=== PATIENT | female | born 2000 | race Caucasian/White ===

== ENCOUNTER 2020-10-04 19:38 | Emergency (ER) | payer OTHER ==
[2020-10-04 20:11] LABS: Urine Blood NEGATIVE (NEG); Urine Glucose NEGATIVE (NEG); Urine Protein NEGATIVE (NEG); Urine Specific Gravity 1.025 (1.005-1.030); Urine pH 6.5 (5.0-7.0)
[2020-10-04 22:02] LABS: Basophils % 0.3 % (0-1.3); Hematocrit 29.9 % (36.0-45.0); Lymphocytes % 12.6 % (15.3-44.8); MPV 7.7 fL (7.6-11.3)
[2020-10-04] MEDS ORDERED: NA CHLORIDE 0.9% 1,000 ML ONE (22:04)
[2020-10-04 22:45] LABS: BUN Blood Urea Nitrogen 5 mg/dL (7-18); Bicarbonate 22 mmol/L (21-32); Glucose Level 77 mg/dL (74-106); HCG, Quantitative 87162 mIU/mL (1-3); Potassium 3.4 mmol/L (3.5-5.1); Sodium Level 140 mmol/L (136-145)
--- NOTE | 2020-10-04 22:46 | EDPHYS ---
Physician Documentation [facility] Name: Hamilton Fritz Age: 20 yrs Sex: Female : 2000 Arrival Date: 10/04/2020 Time: 19:44 Bed 26 Private MD: VLAD Physician Jere Meyers HPI: 10/04 21:33 This 20 yrs old Female presents to ER via Ambulatory with complaints of tayler Vomiting, Fainting. 21:33 The patient presents to the emergency department with nausea, vomiting, that is tayler intermittent. Onset: The symptoms/episode began/occurred 5 day(s) ago. Possible causes: unknown. The symptoms are aggravated by nothing. The symptoms are alleviated by nothing. Associated signs and symptoms: The patient has no apparent associated signs or symptoms. Severity of symptoms: At their worst the symptoms were mild in the emergency department the symptoms are unchanged. The patient has not experienced similar symptoms in the past. 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 - Social history:: Smoking status: Patient denies any tobacco usage or history of. Patient/guardian denies using alcohol, street drugs, IV drugs. - Family history:: not pertinent. ROS: 21:33 Constitutional: Negative for fever, chills, and weight loss, Eyes: Negative for injury, tayler pain, redness, and discharge, ENT: Negative for injury, pain, and discharge, Neck: Negative for injury, pain, and swelling, Cardiovascular: Negative for chest pain, palpitations, and edema, Respiratory: Negative for shortness of breath, cough, wheezing, and pleuritic chest pain, Back: Negative for injury and pain, : Negative for injury, bleeding, discharge, and swelling, MS/Extremity: Negative for injury and deformity, Skin: Negative for injury, rash, and discoloration, Neuro: Negative for headache, weakness, numbness, tingling, and seizure. 21:33 Abdomen/GI: Positive for nausea and vomiting. Exam: 21:33 Constitutional: This is a well developed, well nourished patient who is awake, alert, tayler and in no acute distress. Head/Face: Normocephalic, atraumatic. Eyes: Pupils equal round and reactive to light, extra-ocular motions intact. Lids and lashes normal. Conjunctiva and sclera are non-icteric and not injected. Cornea within normal limits. Periorbital areas with no swelling, redness, or edema. ENT: Nares patent. No nasal discharge, no septal abnormalities noted. Tympanic membranes are normal and external auditory canals are clear. Oropharynx with no redness, swelling, or masses, exudates, or evidence of obstruction, uvula midline. Mucous membranes moist. Neck: Trachea midline, no thyromegaly or masses palpated, and no cervical lymphadenopathy. Supple, full range of motion without nuchal rigidity, or vertebral point tenderness. No Meningismus. Chest/axilla: Normal chest wall appearance and motion. Nontender with no deformity. No lesions are appreciated. Cardiovascular: Regular rate and rhythm with a normal S1 and S2. No gallops, murmurs, or rubs. Normal PMI, no JVD. No pulse deficits. Respiratory: Lungs have equal breath sounds bilaterally, clear to auscultation and percussion. No rales, rhonchi or wheezes noted. No increased work of breathing, no retractions or nasal flaring. Abdomen/GI: Soft, non-tender, with normal bowel sounds. No distension or tympany. No guarding or rebound. No evidence of tenderness throughout. Back: No spinal tenderness. No costovertebral tenderness. Full range of motion. Skin: Warm, dry with normal turgor. Normal color with no rashes, no lesions, and no evidence of cellulitis. MS/ Extremity: Pulses equal, no cyanosis. Neurovascular intact. Full, normal range of motion. Neuro: Awake and alert, GCS 15, oriented to person, place, time, and situation. Cranial nerves II-XII grossly intact. Motor strength 5/5 in all extremities. Sensory grossly intact. Cerebellar exam normal. Normal gait. Psych: Awake, alert, with orientation to person, place and time. Behavior, mood, and affect are within normal limits. Vital Signs: 19:45 Pulse 100; Resp 18 S; Temp 97.2(TE); Pulse Ox 100% on R/A; Weight 58.97 kg (R); Height ca1 5 ft. 2 in. (157.48 cm) (R); Pain 0/10; 19:47 BP 127 / 76; Pulse 112; ca1 20:25 BP 118 / 68; Pulse 88; Resp 16; Pulse Ox 95% ; sf 20:30 BP 114 / 57; Pulse 89; Resp 16; Pulse Ox 95% ; sf 21:30 BP 112 / 74; Pulse 95; Resp 16; Pulse Ox 100% ; sf 22:30 BP 115 / 85; Pulse 93; Resp 16; Pulse Ox 100% ; sf 19:45 Body Mass Index 23.78 (58.97 kg, 157.48 cm) ca1 MDM: 19:48 Patient medically screened. [facility] 21:35 Differential diagnosis: viral gastroenteritis, gastroenteritis. Data reviewed: vital tayler signs, nurses notes, lab test result(s), CBC, electrolytes, hepatic panel, urinalysis, radiologic studies, ultrasound. 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 Test interpretation: by ED physician or midlevel provider:. Counseling: I had a detailed discussion with the patient and/or guardian regarding: the historical points, exam findings, and any diagnostic results supporting the discharge/admit diagnosis, lab results, radiology results, the need for outpatient follow up, for definitive care, an OB/Gyne specialist. 10/04 20:08 Order name: Urine --Ancillary (enter results); Complete Time: 21:32 tt3 10/04 20:08 Order name: Urine Dipstick--Ancillary (enter results); Complete Time: 21:32 tt3 10/04 21:33 Order name: Quantitative Hcg; Complete Time: 22:50 [facility] 10/04 21:33 Order name: Abo/rh Typing [facility] 10/04 21:33 Order name: Basic Metabolic Panel; Complete Time: 22:50 [facility] 10/04 21:33 Order name: CBC with Diff; Complete Time: 22:04 [facility] 10/04 20:06 Order name: Urine Dipstick-Ancillary (obtain specimen); Complete Time: 20:07 tt3 10/04 20:06 Order name: Urine Test (obtain specimen); Complete Time: 20:06 tt 10/04 21:33 Order name: IV Saline Lock; Complete Time: 21:45 [facility] 10/04 21:33 Order name: Labs collected and sent; Complete Time: 21:45 [facility] 10/04 21:33 Order name: NPO; Complete Time: 21:33 [facility] 10/04 21:33 Order name: US Transvaginal Ob [facility] 10/04 22:51 Order name: PO challenge: JUICE; Complete Time: 23:25 [facility] Administered Medications: 22:10 Drug: NS 0.9% 1000 ml Route: IV; Rate: 1 bolus; Site: right antecubital; sf 23:25 Follow up: IV Status: Completed infusion; IV Intake: 1000ml sf 22:56 Drug: Zofran (Ondansetron) 4 mg Route: PO; sf 23:25 Follow up: Response: No adverse reaction; Nausea is decreased sf Disposition: 10/04/20 22:45 Discharged to Home. Impression: related conditions, unspecified, first trimester, related conditions, unspecified, second trimester, Vomiting, Twin , Twin , dichorionic/diamniotic, first trimester, Twin , dichorionic/diamniotic, second trimester, Hypokalemia. - Condition is Stable. - Discharge Instructions: Nausea and Vomiting, Adult, First Trimester of , Lnqy-pe-Gjwf, First Trimester of , Pelvic Rest, Second Trimester of , Nato-wx-Slke. - Prescriptions for Diclegis 10- 10 mg Oral tablet,delayed release (DR/EC) - take 1 tablet by ORAL route 3 times per day and 2 tablets at bedtime; 60 tablet. Vitamin 27- 0.8 mg Oral Tablet - take 1 tablet by ORAL route once daily; 30 tablet. Zofran 4 mg Oral Tablet - take 1 tablet by ORAL route every 12 hours As needed; 20 tablet. - Medication Reconciliation Form, Thank You Letter, Antibiotic Education, Prescription Opioid Use form. - Follow up: Private Physician; When: 2 - 3 days; Reason: Recheck today's complaints, Continuance of care, Re-evaluation by your physician. Follow up: Camilo Gan MD; When: 2 - 3 days; Reason: Recheck today's complaints, Re-evaluation by your physician. - Problem is new. - Symptoms have improved. Signatures: Dispatcher [employer] Jere Trivedi MD MD cha Acob, Cheryl, RN RN ca1 Geovany Whiting3 Al Kasper RN RN sf Corrections: (The following items were deleted from the chart) 20:42 19:47 Home Meds: None; ca1 sf 22:19 21:33 Transvaginal Ob+US.BRIGITTE ordered. EDMS EDMS 23:18 22:45 10/04/2020 22:45 Discharged to Home. Impression: related conditions, tayler unspecified, first trimester; related conditions, unspecified, second trimester; Vomiting; Twin ; Twin , dichorionic/diamniotic, first trimester; Twin , dichorionic/diamniotic, second trimester. Condition is Stable. Discharge Instructions: Nausea and Vomiting, Adult, First Trimester of , Kzej-vp-Uyop, First Trimester of , Pelvic Rest, Second Trimester of , Tkyz-tq-Iwgn. Prescriptions for Diclegis 10-10 mg Oral tablet,delayed release (DR/EC) - take 1 tablet by ORAL route 3 times per day and 2 tablets at bedtime; 60 tablet, Vitamin 27-0.8 mg Oral Tablet - take 1 tablet by ORAL route once daily; 30 tablet, Zofran 4 mg Oral Tablet - take 1 tablet by ORAL route every 12 hours As needed; 20 tablet. and Forms are Medication Reconciliation Form, Thank You Letter, Antibiotic Education, Prescription Opioid Use. Follow up: Private Physician; When: 2 - 3 days; Reason: Recheck today's complaints, Continuance of care, Re-evaluation by your physician. Follow up: Camilo Gan; When: 2 - 3 days; Reason: Recheck today's complaints, Re-evaluation by your physician. Problem is new. Symptoms have improved. tayler 23:45 23:18 10/04/2020 22:45 Discharged to Home. Impression: related conditions, sf unspecified, first trimester; related conditions, unspecified, second trimester; Vomiting; Twin ; Twin , dichorionic/diamniotic, first trimester; Twin , dichorionic/diamniotic, second trimester; Hypokalemia. Condition is Stable. Discharge Instructions: Nausea and Vomiting, Adult, First Trimester of , Hvdg-sp-Iyon, First Trimester of , Pelvic Rest, Second Trimester of , Ouxb-ym-Zqaq. Prescriptions for Diclegis 10-10 mg Oral tablet,delayed release (DR/EC) - take 1 tablet by ORAL route 3 times per day and 2 tablets at bedtime; 60 tablet, Vitamin 27-0.8 mg Oral Tablet - take 1 tablet by ORAL route once daily; 30 tablet, Zofran 4 mg Oral Tablet - take 1 tablet by ORAL route every 12 hours As needed; 20 tablet. and Forms are Medication Reconciliation Form, Thank You Letter, Antibiotic Education, Prescription Opioid Use. Follow up: Private Physician; When: 2 - 3 days; Reason: Recheck today's complaints, Continuance of care, Re-evaluation by your physician. Follow up: Camilo Gan; When: 2 - 3 days; Reason: Recheck today's complaints, Re-evaluation by your physician. Problem is new. Symptoms have improved. tayler
--- NOTE | 2020-10-04 22:46 | ER ---
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 Coronavirus screen: ca1 Client denies travel out of the [place] in the last 14 days. vomiting. Client presents with at least one sign or symptom that may indicate coronavirus-19. Standard/surgical mask placed on the client. Provider contacted for isolation considerations. Ebola Screen: Patient negative for fever greater than or equal to 101.5 degrees Fahrenheit, and additional compatible Ebola Virus Disease symptoms Patient denies exposure to infectious person. Patient denies travel to an Ebola-affected area in the 21 days before illness onset. No symptoms or risks identified at this time. Initial Sepsis Screen: Does the patient meet any 2 criteria? No. Patient's initial sepsis screen is negative. Does the patient have a suspected source of infection? No. Patient's initial sepsis screen is negative. Risk Assessment: Do you want to hurt yourself or someone else? Patient reports no desire to harm self or others. Onset of symptoms was October 04, 2020. 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 - Social history:: Smoking status: Patient denies any tobacco usage or history of. Patient/guardian denies using alcohol, street drugs, IV drugs. - Family history:: not pertinent. Screenin:30 Abuse screen: Denies threats or abuse. Denies injuries from another. Nutritional sf screening: No deficits noted. Tuberculosis screening: No symptoms or risk factors identified. Never had TB. Possible symptoms: None Risk factors: None. Fall Risk None identified. No fall in past 12 months (0 pts). No secondary diagnosis (0 pts). IV access (20 points). Ambulatory Aid- None/Bed Rest/Nurse Assist (0 pts). Gait- Normal/Bed Rest/Wheelchair (0 pts) Mental Status- Oriented to own ability (0 pts). Total Dowling Fall Scale indicates No Risk (0-24 pts). Assessment: 20:35 General: Appears in no apparent distress. comfortable, Behavior is calm, cooperative, sf appropriate for age. Pain: Complains of pain in left low back, right low back, suprapubic area and groin. Neuro: Level of Consciousness is awake, alert, Oriented to person, place, time, situation, Reports a syncopal episode Denies weakness blurred vision numbness headache. Cardiovascular: No deficits noted. Capillary refill < 3 seconds Patient's skin is warm and dry. Respiratory: No deficits noted. Airway is patent Respiratory effort is even, unlabored, Respiratory pattern is regular, symmetrical. GI: Abdomen is gravid Abdomen is tender to palpation in suprapubic area Mass noted in suprapubic area Reports nausea, normal bowel habits, vomiting, Patient currently denies constipation, diarrhea. : Urine is cloudy, Denies burning with urination, urinary frequency, urgency. 21:30 Reassessment: Patient appears in no apparent distress at this time. No changes from sf previously documented assessment. Patient and/or family updated on plan of care and expected duration. Pain level reassessed. Patient is alert, oriented x 3, equal unlabored respirations, skin warm/dry/pink. 22:32 Reassessment: Patient appears in no apparent distress at this time. No changes from sf previously documented assessment. Patient and/or family updated on plan of care and expected duration. Pain level reassessed. Patient is alert, oriented x 3, equal unlabored respirations, skin warm/dry/pink. 23:38 Reassessment: Patient appears in no apparent distress at this time. Patient and/or sf family updated on plan of care and expected duration. Pain level reassessed. Patient is alert, oriented x 3, equal unlabored respirations, skin warm/dry/pink. decreased nausea, able to keep PO fluids down, ready for discharge Patient states feeling better. Patient states symptoms have improved. Vital Signs: 19:45 Pulse 100; Resp 18 S; Temp 97.2(TE); Pulse Ox 100% on R/A; Weight 58.97 kg (R); Height ca1 5 ft. 2 in. (157.48 cm) (R); Pain 0/10; 19:47 BP 127 / 76; Pulse 112; ca1 20:25 BP 118 / 68; Pulse 88; Resp 16; Pulse Ox 95% ; sf 20:30 BP 114 / 57; Pulse 89; Resp 16; Pulse Ox 95% ; sf 21:30 BP 112 / 74; Pulse 95; Resp 16; Pulse Ox 100% ; sf 22:30 BP 115 / 85; Pulse 93; Resp 16; Pulse Ox 100% ; sf 19:45 Body Mass Index 23.78 (58.97 kg, 157.48 cm) ca1 ED Course: 19:30 Patient has correct armband on for positive identification. Placed in gown. Bed in low sf position. Call light in reach. Side rails up X 1. Door closed. Noise minimized. Warm blanket given. Verbal reassurance given. 19:30 Urine collected: clean catch specimen, cloudy. sf 19:44 Patient arrived in ED. am4 19:46 Triage completed. ca1 19:47 Arm band placed on right wrist. ca1 19:48 Jere Meyers MD is Attending Physician. tayler 19:52 Al Kasper RN is Primary Nurse. sf 21:45 Initial lab(s) drawn, by il, sent to lab. Inserted saline lock: 20 gauge in right sf antecubital area, using aseptic technique. Blood collected. 22:45 Camilo Gan MD is Referral Physician. tayler 22:53 No provider procedures requiring assistance completed. sf 23:43 IV discontinued, intact, bleeding controlled, No redness/swelling at site. Pressure sf dressing applied. 23:48 US Transvaginal Ob In Process Unspecified. EDMS Administered Medications: 22:10 Drug: NS 0.9% 1000 ml Route: IV; Rate: 1 bolus; Site: right antecubital; sf 23:25 Follow up: IV Status: Completed infusion; IV Intake: 1000ml sf 22:56 Drug: Zofran (Ondansetron) 4 mg Route: PO; sf 23:25 Follow up: Response: No adverse reaction; Nausea is decreased sf Intake: 23:25 IV: 1000ml; Total: 1000ml. sf Outcome: 22:45 Discharge ordered by . tayler 23:43 Discharged to home ambulatory. sf 23:43 Condition: stable 23:43 Discharge instructions given to patient, Instructed on discharge instructions, follow up and referral plans. medication usage, safe sex practices, Demonstrated understanding of instructions, follow-up care, medications, Prescriptions given X 3. 23:45 Patient left the ED. sf Signatures: Dispatcher [employer] EDMS Jere Meyers MD MD cha Acob, Cheryl RN RN ca1 Maris Jolly Steven, RN RN sf Corrections: (The following items were deleted from the chart) 20:42 19:47 Home Meds: None; ca1 22:19 22:18 To radiology for Transvaginal Ob+US.RAD.JUAN MANUEL. sf EDSC
[2020-10-04] MEDS ORDERED: ONDANSETRON 4 MG (ODT) TAB ONE (23:12)
[2020-10-05 03:35] VITALS: BP 115/85; O2SAT 100
--- NOTE | 2020-10-06 10:33 | RAD REPORT ---
EXAM DESCRIPTION: US - Transvaginal OB - 10/04/2020 10:06 pm CLINICAL HISTORY: with abdominal pain. COMPARISON: None FINDINGS: Twin live intrauterine is seen. Twin A is in transverse presentation. Placenta is anterior. Amniotic fluid is normal. Cardiac activit y is 148 beats per minute. Twin B is in variable presentation. Cardiac activity is 149 beats per minute. Placenta is posterior. A septation separates the sacs of twin A and twin B. Femur length twin A is 1.7 centimeters 15 weeks 0 days. Femur length twin B is 1.69 centimeters 14 weeks 6 days. The right ovary is normal in size and echotexture. The left ovary was not seen secondary to overlying bowel gas. The right and left adnexal are unremarkable. IMPRESSION: 1. Viable twin . 2. Estimated gestational age of twin A is 15 weeks 0 days DANDY 03/28/2021. 3. Estimated gestational age of twin B is 14 weeks 6 days DANDY 03/29/2021. 4. The is appears to be diamniotic dichorionic. 5. A limited examination was performed STAT from the Emergency Room. 6. It is recommended that the patient have a complete OB ultrasound in approximately 3 weeks for re-e valuation and to also complete a survey.
== END 2020-10-04 23:45 | disposition home or self-care (01) ==
LOC: ER 19:38
DX: O99.282 Endocrine, nutritional and metabolic diseases complicating pregnancy, second trimester (principal); E87.6 Hypokalemia; O30.042 Twin pregnancy, dichorionic/diamniotic, second trimester; Z3A.15 15 weeks gestation of pregnancy
CPT/HCPCS: 36415; 76817; 80048; 81003; 81025; 84702; 85025; 86900; 86901; 96360; 99284; J7030

== ENCOUNTER 2020-12-13 13:15 | Inpatient (IN) | payer OTHER ==
[2020-12-13] MEDS ORDERED: BETAMET ACET/BETAMET NA PH 6 MG/ML VIAL IM SCH (14:00)
--- NOTE | 2020-12-13 14:03 | RAD REPORT ---
EXAM DESCRIPTION: US - OB Limited - 12/13/2020 1:47 pm CLINICAL HISTORY: imminent delivery, twin gestation COMPARISON: Transvaginal OB dated 10/04/2020 FINDINGS: Twin A heart rate 148 BPM. Twin B heart rate 146 BPM. Twin gestation identify it with both twins in a breech presentation. Cervix is dilated and membranes appear to be extending into the cervical canal. Femur measurements were obtained and correspond to 25 week 2 day age for twin a day and 25 week 4 day age for twin B IMPRESSION: Twin gestation 25 week age, both in breech presentation. Dilated cervix with membranes bulging into the cervix.
[2020-12-13] MEDS ORDERED: EPINEPHrine 1 MG/10 ML SYR ONE (14:04)
[2020-12-13] MEDS ORDERED: TERBUTALINE SULF 1 MG/1ML ONE (14:04)
[2020-12-13] MEDS ORDERED: CARBOPROST TROME 250 MCG/ML IM ONE (14:08)
[2020-12-13] MEDS ORDERED: METHYLERGONOVINE 0.2MG/ML AMP IM ONE (14:08)
[2020-12-13] MEDS ORDERED: BUPIVACAINE 0.75% (PF) 2 ML SP ONE (14:14)
[2020-12-13] MEDS ORDERED: OXYTOCIN 10 UNIT/ML ML IV ONE (14:15)
[2020-12-13] MEDS ORDERED: MORPHINE SULFATE/PF 1 MG/ML (10 ML AMP) ONE (14:15)
[2020-12-13] MEDS ORDERED: EPHEDRINE SULF 50 MG/ML VIAL ONE (14:15)
[2020-12-13] MEDS ORDERED: LIDOCAINE 1% MPF 5 ML VIAL ONE (14:19)
[2020-12-13] MEDS ORDERED: OXYTOCIN/LR 20 UNIT/1,000 ML BAG IV SCH (15:00)
[2020-12-13] MEDS ORDERED: OXYTOCIN/LR 20 UNIT/1,000 ML BAG IV ONE (15:57)
[2020-12-13] MEDS ORDERED: CEFAZOLIN/SWI 1gm 1 GM/10 ML SYR IVP ONE ×2 (16:00→21:00)
[2020-12-13 16:04] LABS: Absolute Lymphocytes (CBC) 1.2 K/uL (0.7-4.9); Basophils % 0.4 % (0-1.3); Hematocrit 29.2 % (36.0-45.0); Lymphocytes % 15.3 % (15.3-44.8); MPV 8.9 fL (7.6-11.3); RBC Red Blood Cell Count 3.12 M/uL (3.86-4.86)
[2020-12-13] MEDS ORDERED: ACETAMINOPHEN 500 MG TAB PO PRN (17:44)
[2020-12-13] MEDS ORDERED: Oxycodone HCl/Acetaminophen 1 TAB TAB PO PRN (17:58)
[2020-12-13] MEDS ORDERED: D5LR 1,000 ML IV SCH (18:00)
[2020-12-13] MEDS ORDERED: Ringers Lactate 1,000 ML IV SCH (18:00)
[2020-12-13] MEDS ORDERED: IBUPROFEN 600 MG TAB ONE (18:12)
--- NOTE | 2020-12-13 18:47 | PN ---
Transfer Team is on the way, but I do not think we will have time to wait for them. She is contracti ng every 2 minutes very firmly, is requesting . Infection; blood loss; anesthetic complicati ons; injury to bladder, bowel, ureter; postoperative complications; clots in legs, and pneumonia disc ussed. Surgical crew has been alerted. Dr. Watts is here and has already talked to the patient. Dr. Zavaleta is on his way to help me with the surgery. Dr. Garcia has been alerted and is on her w ay. We will go back and deliver as soon as we can. She knows the baby will be transferred as soon a s her stable enough to be transferred. The Transfer Team should be here hopefully. By the time, we have delivery and the baby is in the Nursery. THEA/CLEMENTINE Voice ID: [id number] Report ID: [id number]
[2020-12-13] MEDS ORDERED: KETOROLAC 30 MG/ML INJ IM ONE (19:00)
--- NOTE | 2020-12-13 19:02 | PREOPHP ---
Date of Admission: 12/13/2020 History Of Present Illness: Hamilton Fritz is a 20-year-old primigravida at 24 weeks and 3 days. Reported contractions since 10 a.m. this morning. Comes into Labor and Delivery, noted to have bul ging membranes at the introitus. Presenting part is unknown, and amount of dilation is really undete ctable at this point since any attempt to get pass the membranes will probably result in membrane rup ture. She has been started on penicillin. First dose of Celestone has been given. We are starting IV and hydrating. I have talked to INPATIENT AUDITOR specialist at the [facility], who has accepted transfer of either the patient if it can be ascertained she can be transferred safely or delivery of the adriana es here and then transfer the babies. They are sending the team out as I dictate. The patient is st able. Family History: Noncontributory. Physical Examination: Vital Signs: All stable. HEENT: Clear. Pupils equal, round, reactive to light and accommodation. Conjunctivae well perfused . No oral, lingual, or buccal lesions. Chest and Lungs: Clear. Heart: Without murmurs. Breasts: Not examined. Abdomen: Appropriate for 24 weeks with a twin gestation. Extremities: Clear without edema, cyanosis, or clubbing. Pelvic: As stated with bulging membranes at the introitus. Ultrasound is being performed at this po int to determine the position of presenting baby and to try to see if we can determine what the cervi x is dilated to at this point. Diagnoses: Intrauterine gestation, 24 weeks 3 days, premature labor, delivery relatively soon, trans eliazar process has been initiated. THEA/CLEMENTINE Voice ID: [id number]
[2020-12-13] MEDS: ONDANSETRON 4 MG/2 ML VIAL IV PRN (20:30)
[2020-12-13] MEDS ORDERED: CEFAZOLIN/NS 1gm 1 GM/50 ML BAG IVPB ONE (21:00)
[2020-12-13 21:15] VITALS: BMI 28.0
[2020-12-14] MEDS ORDERED: IBUPROFEN 600 MG TAB PO SCH
[2020-12-14] MEDS ORDERED: OXYTOCIN/LR 20 UNIT/1,000 ML BAG IV ONE (00:05)
[2020-12-14] MEDS: ONDANSETRON 4 MG/2 ML VIAL IV PRN (00:35)
--- NOTE | 2020-12-14 01:02 | OP ---
Surgeon: Camilo Gan MD Hamilton Fritz is a 20-year-old female, twins, 24 weeks 3 days, premature labor, first twin breech wi th the feet at the introitus. It was decided to proceed with section after discussion of op tions, infection, blood loss, anesthetic complications; injury to bladder, bowel, ureter; postoperati ve complications; clots in legs; and pneumonia. The patient knows this does not constitute all the p ossible problems that could occur during or following surgery. She had received 5 million units of p enicillin preop as well as Celestone and 1 dose of terbutaline to slow down contractions. Dr. Danyell telles, assistance surgeon; Dr. Watts for anesthesia. Dr. Watts performed spinal block anesthesia. T he patient was prepped and draped. A Pfannenstiel incision was created. Incision was carried to the fascia. The fascia was incised. The incision carried transversely bilaterally with Rg scissors. Anterior and posterior fascial planes were developed with both blunt and sharp dissection. Underlyi ng peritoneum entered and retraction applied. Low transverse bladder flap developed. Low transverse uterine incision created. A very small female was delivered through the incision without difficulti es, handed over to Pediatrics. Cords clamped. Second baby was delivered vertex, slightly larger carol n the first and more responsive. Placenta was removed manually. The uterus cleared of clot and bloo d and exteriorized. Mild hypotonus, 0.2 mg of Methergine IM as well as IV drip, Pitocin, and massage . Estimated blood loss during the procedure 800-900 cc. Uterus closed with a running lock stitch of 1 chromic followed by imbricating stitch of 1 chromic. Gutters clear of clot and blood. Uterus rep laced into the peritoneal cavity. No further bleeding was seen. Muscles were reapproximated using 0 Vicryl interrupted sutures, 2 sutures. The fascia was closed using 1 Vicryl running from either ang le to the midline. Subcutaneous tissue was closed with 2-0 plain. [place] used for the skin. The p atient tolerated all procedures well and transferred back to her room in good condition. Final Diagnoses: Intrauterine gestation, twins, 24 weeks 3 days, premature labor, advanced. First b [place] footling breech. Primary section. Spinal block anesthesia. Celestone administered. NBC/MODL Voice ID: [id number] Report ID: [id number]
[2020-12-14 01:14] LABS: RPR (Rapid Plasma Reagin) NON-REACT (NON-REACT)
[2020-12-14 05:14] LABS: Hematocrit 31.1 % (36.0-45.0)
[2020-12-14] MEDS: Oxycodone HCl/Acetaminophen 1 TAB TAB PO PRN ×2 (10:09→17:31)
--- NOTE | 2020-12-14 10:58 | PN ---
Hospital Course: Hamilton Fritz postoperatively has done quite well. H and H actually showed increa se. Vital signs are all stable. Output is good. We will discontinue her Haile sometime later this morning and then IV as she begins to ambulate if she shows no problems. She is Rh positive, HIV and hepatitis negative. She has no post spinal block problems. Full postoperative talk given. Anticipa te dismissal sometime tomorrow. THEA/CLEMENTINE Voice ID: [id number] Report ID: [id number]
[2020-12-15] MEDS: Oxycodone HCl/Acetaminophen 1 TAB TAB PO PRN ×2 (02:39→10:33)
[2020-12-15 06:22] VITALS: TEMP 97.7
[2020-12-15 11:50] VITALS: BP 117/57
--- NOTE | 2020-12-15 13:53 | DS ---
Hospital Course: Hamilton Fritz is a 20-year-old, primigravida, 24 weeks 3 days, known twin gestation, came in with advanced cervical dilation, bulging membranes, first baby foot in breech, and feet noted at the basically introitus. IV was started. She was given 5 million units of penicillin, 0.25 subcu terbutaline to try to slow down the contractions, Celestone. Contact was made with [facility] Transfer Team was ordered to be sent. In the meantime, though the patient went into an even more active labor again to feel the urge to push and at that point requested section. She was taken to surgery. Spinal block anesthesia was performed. She was delivered of 2 female infants, both weighing 1 pound 7 ounces, first one from footling breech, second one had first. Mild uterine hypertonus. 900 mL of blood loss, 0.2 mg of Methergine IM as well as IV drip Pitocin and massage. Low transverse uterine incision. Postoperatively, she has done well. She has remained afebrile, ambulating, voiding. Lochia is normal. She will be dismissed this morning to report back to my office next week for followup to report any temperature elevation of 100 degrees or greater, severe pain, heavy bleeding, or any other type of abnormalities. Encouraged to get her Tdap immunization. Her H and H actually increased after surgery. She has had trouble with anemia during the and her blood count now is basically what was in beginning of the . Twins are in [place] and at this point are doing about as well as expected at 24 weeks. Final Diagnoses: Intrauterine gestation, twins, 24 weeks 3 days, premature labor, footling breech first baby, primary section, spinal block anesthesia, mild uterine hypotonus. NBC/MODL Voice ID: [id number] Report ID: [id number] SHAY
[2020-12-16 19:35] LABS: HBsAG Nonreactive (Nonreactive)
== END 2020-12-15 17:10 | disposition home or self-care (01) | DRG 787 ==
LOC: L&D 13:15 → 2ND-WC 13:46
PROVIDERS: ADMIT Specialist; ATTEND Specialist
PROC: 10D00Z1 Extraction of Products of Conception, Low, Open Approach (ICD-10-PCS; principal; 2020-12-13 14:16)
DX: O60.12X1 Preterm labor second trimester with preterm delivery second trimester, fetus 1 (principal); O31.8X21 Other complications specific to multiple gestation, second trimester, fetus 1; O30.042 Twin pregnancy, dichorionic/diamniotic, second trimester; O32.1XX1 Maternal care for breech presentation, fetus 1; O62.4 Hypertonic, incoordinate, and prolonged uterine contractions; Z3A.24 24 weeks gestation of pregnancy; Z37.2 Twins, both liveborn
CPT/HCPCS: 36415; 76815; 85014; 85018; 85025; 86592; 86901; 87340; 88305; 88307; G0433; J0171; J0690; J0702; J2210; J2405; J2590; J3105; J7120

== ENCOUNTER 2023-12-01 14:16 | Emergency (ER) | payer SELFPAY ==
[2023-12-01] MEDS ORDERED: NA CHLORIDE 0.9% 1,000 ML ONE (14:37)
[2023-12-01 15:01] LABS: Absolute Eosinophils 0.2 K/uL (0-0.5); Absolute Lymphocytes (CBC) 1.5 K/uL (0.7-4.9); Absolute Monocytes 0.5 K/uL (0.1-1.3); Absolute Neutrophil 4.6 K/uL (1.8-8.0); Basophils % 0.6 % (0-1.3); Eosinophils % 2.6 % (0-4.4); Hematocrit 37.3 % (36.0-45.0); Hemoglobin 12.3 g/dL (12.0-15.0); Lymphocytes % 22.3 % (15.3-44.8); MCH 29.3 pg (27.0-35.0); MCHC 32.9 g/dL (32.0-36.0); Monocytes % 7.5 % (3.3-12.3); Nucleated Red Blood Cells % 0.1 % (0-0); Platelets 378 thou/uL (152-406); RBC Red Blood Cell Count 4.18 M/uL (3.86-4.86); Red Cell Distribution Width 13.7 % (12.1-15.2)
[2023-12-01 15:17] LABS: SARS-CoV-2 Antigen CONTROL BLUE LINE VIS/BG OK; SARS-CoV-2 Antigen Rapid Res Negative (Negative)
[2023-12-01 15:30] LABS: Albumin 3.7 g/dL (3.4-5.0); Albumin/Globulin Ratio 0.9 (1.1-1.8); Anion Gap 7.9 mEq/L (5.0-15.0); Bilirubin Total 0.1 mg/dL (0.2-1.0); Globulin 3.9 g/dL (2.3-3.5); Potassium 3.9 mEq/L (3.5-5.1); Protein, Total 7.6 g/dL (6.4-8.2); Thyroid Stimulating Hormone 2.52 uIU/mL (0.358-3.740)
[2023-12-01 15:37] LABS: Monoscreen NEG (NEG)
--- NOTE | 2023-12-01 15:53 | EDPHYS ---
Physician Documentation [facility] Name: Hamilton Fritz Age: 23 yrs Sex: Female : 2000 Arrival Date: 12/01/2023 Time: 14:16 Bed 15 Private MD: ED Physician Andrew Zurita HPI: 11/30 14:33 This 23 yrs old Female presents to ER via Ambulatory with complaints of Lips Swelling, sb4 Fever. 14:33 patient presents with multiple complaints today- states that her upper lip has been sb4 swollen since last night, has had a sore throat and right ear pain for several months, and feels chronically fatigued. she denies eating any new foods or starting new medications recently. only daily medication is Adderall. denies any itching, shortness of breath, rash. 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 - Infectious Disease History:: Denies. - Social history:: Smoking status: Patient denies any tobacco usage or history of. ROS: 14:33 Constitutional: Negative for fever, chills, and weight loss, sb4 14:33 ENT: Positive for ear pain, sore throat, lip swelling, 14:33 All other systems are negative, Exam: 14:33 Constitutional: This is a well developed, well nourished patient who is awake, alert, sb4 and in no acute distress. Head/Face: Normocephalic, atraumatic. Eyes: Extra-ocular motions intact. Periorbital areas with no swelling, redness, or edema. Respiratory: Lungs have equal breath sounds bilaterally, clear to auscultation and percussion. No rales, rhonchi or wheezes noted. No increased work of breathing, no retractions or nasal flaring. Abdomen/GI: Soft, non-tender, no distension. Skin: Warm, dry with normal turgor. Normal color with no rashes, no lesions, and no evidence of cellulitis. MS/ Extremity: Pulses equal, no cyanosis. Neurovascular intact. Full, normal range of motion. Neuro: Awake and alert, GCS 15, oriented to person, place, time, and situation. Motor strength 5/5 in all extremities. Sensory grossly intact. 14:33 ENT: Ear canal(s): are normal, no acute changes, TM's: are normal, no acute changes, Mouth: Lips: upper lip swollen, Posterior pharynx: Airway: normal, no evidence of obstruction, patent, Vital Signs: 14:25 BP 133 / 84; Pulse 119; Resp 17; Temp 99.1(O); Pulse Ox 100% on R/A; Weight 60.33 kg; nj1 Height 5 ft. 2 in. ; Pain 6/10; 14:34 BP 125 / 95; Pulse 113; Resp 18; Pulse Ox 100% on R/A; tl4 15:00 BP 124 / 69; Pulse 95; Resp 16; Pulse Ox 99% on R/A; tl4 16:09 BP 118 / 71; Pulse 86; Resp 16; Temp 98.2(O); Pulse Ox 100% on R/A; Pain 0/10; tl4 14:25 Body Mass Index 24.33 (60.33 kg, 157.48 cm) nj1 14:25 Pain Scale: Adult nj1 16:09 Pain Scale: Adult tl4 MDM: 14:21 Patient medically screened. sb4 15:52 Data reviewed: vital signs, nurses notes, lab test result(s), and as a result, I will sb4 discharge patient. Counseling: I had a detailed discussion with the patient and/or guardian regarding the historical points, exam findings, and any diagnostic results supporting the discharge/admit diagnosis, lab results, the need for outpatient follow up, for definitive care, to return to the emergency department if symptoms worsen or persist or if there are any questions or concerns that arise at home. 11/30 14:31 Order name: CBC with Diff; Complete Time: 15:12 sb4 11/30 14:31 Order name: CMP; Complete Time: 15:30 sb4 11/30 14:31 Order name: Strep sb4 11/30 14:31 Order name: [place] Screen Profile; Complete Time: 15:38 sb4 11/30 14:31 Order name: TSH; Complete Time: 15:30 sb4 11/30 14:31 Order name: SARS RAPID; Complete Time: 15:18 sb4 11/30 15:24 Order name: Throat Culture EDMS 11/30 14:31 Order name: IV Start; Complete Time: 14:55 sb4 Administered Medications: 14:55 Drug: NS 0.9% IV 1000 ml IV at 1 bolus Per protocol; 1000 mL bolus {Note: via alaris tl4 pump.} Route: IV; Rate: 1 bolus; Site: right antecubital; Delivery: Primary tubing; 16:06 Follow up: Response: No adverse reaction; IV Status: Completed infusion; IV Intake: tl4 1000ml Disposition: 16:18 Co-signature as Attending Physician, Anrdew Zurita MD I reviewed the patient's care rn provided by the Advanced Practice Provider and agree with the diagnosis and treatment plan. Disposition Summary: 12/01/23 15:53 Discharge Ordered Notes: Location: Home sb4 Problem: new sb4 Symptoms: are unchanged sb4 Condition: Stable sb4 Diagnosis - upper lip swelling sb4 Followup: sb4 - With: Simone Contreras, DO - When: As needed - Reason: Recheck today's complaints, Re-evaluation by your physician Discharge Instructions: - Discharge Summary Sheet sb4 - Dizziness, [id number] sb4 Forms: - Patient Portal Instructions sb4 - Leadership Thank You Letter sb4 Prescriptions: - Prednisone 20 mg Oral Tablet - take 2 tablets ORAL route once daily for 5 days; 10 tablet; Refills: 0, Product sb4 Selection Permitted Signatures: Dispatcher [employer] Andrew Lorenz MD MD rn Baxter, Heather, RN RN hb Brown, Sophia, PA-C PAWaldo sb4 Ashley Villar RN RN nj1 Chris Apple RN RN tl4 Corrections: (The following items were deleted from the chart) 14:32 14:31 CBC+H.LAB.BRZ ordered. EDMS EDMS 14:32 14:31 COMPREHENSIVE METABOLIC PANEL+C.LAB.BRZ ordered. EDMS EDMS 14:32 14:31 Group A Streptococcus Rapid Sc+BA.LAB.BRZ ordered. EDMS EDMS 14:32 14:31 MONO SCREEN PROFILE+I.LAB.BRZ ordered. EDMS EDMS 14:32 14:31 THYROID STIMULAT HORMONE+C.LAB.BRZ ordered. EDMS EDMS 14:32 14:32 SARS-COV-2 Antigen Rapid+I.LAB.BRZ ordered. EDMS EDMS 14:32 14:32 Influenza Screen (A \T\ B)+BA.LAB.BRZ ordered. EDMS EDMS 15:50 15:44 Labs - recollect needed ordered. hb sb4
--- NOTE | 2023-12-01 15:53 | ER ---
Nurse's Notes [facility] Name: Hamilton Fritz Age: 23 yrs Sex: Female : 2000 Arrival Date: 12/01/2023 Time: 14:16 Bed 15 Private MD: Diagnosis: upper lip swelling Presentation: 11/30 14:25 Chief complaint: Patient states: Lips swelling since yesterday. Dizziness, sore throat nj1 and right ear pain for a while. 14:25 Coronavirus screen: Vaccine status: Patient reports being unvaccinated. Ebola Screen: nj1 Patient denies travel to an Ebola-affected area in the 21 days before illness onset. Initial Sepsis Screen: Does the patient meet any 2 criteria? HR > 90 bpm. No. Patient's initial sepsis screen is negative. Does the patient have a suspected source of infection? No. Patient's initial sepsis screen is negative. Risk Assessment: Do you want to hurt yourself or someone else? Patient reports no desire to harm self or others. Onset of symptoms was November 30, 2023. 14:25 Method Of Arrival: Ambulatory 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 - Infectious Disease History:: Denies. - Social history:: Smoking status: Patient denies any tobacco usage or history of. Screenin:34 [facility] ED Fall Risk Assessment (Adult) History of falling in the last 3 months, tl4 including since admission No falls in past 3 months (0 pts) Confusion or Disorientation No (0 pts) Intoxicated or Sedated No (0 pts) Impaired Gait No (0 pts) Mobility Assist Device Used No (0 pt) Altered Elimination No (0 pt) Score/Fall Risk Level 0 - 2 = Low Risk Oriented to surroundings, Maintained a safe environment, Educated pt \T\ family on fall prevention, incl call for assistance when getting out of bed, Assessed \T\ reinforced patient's understanding of fall precautions. Abuse screen: Denies threats or abuse. Denies injuries from another. Nutritional screening: No deficits noted. Tuberculosis screening: No symptoms or risk factors identified. Assessment: 14:32 General: Appears in no apparent distress. Behavior is calm, cooperative. Pain: Denies tl4 pain. Neuro: Level of Consciousness is awake, alert, obeys commands, Oriented to person, place, time, situation, Moves all extremities. Full function Gait is steady, Speech is normal. Cardiovascular: Denies chest pain, palpitations, shortness of breath, syncope, Capillary refill < 3 seconds Patient's skin is warm and dry. Respiratory: Airway is patent Respiratory effort is even, unlabored, Respiratory pattern is regular, symmetrical, Breath sounds are clear bilaterally. GI: No signs and/or symptoms were reported involving the gastrointestinal system. : No signs and/or symptoms were reported regarding the genitourinary system. EENT: upper lip swelling. Derm: No deficits noted. Musculoskeletal: No deficits noted. 15:24 Reassessment: Patient and/or family updated on plan of care and expected duration. Pain tl4 level reassessed. Patient is alert, oriented x 3, equal unlabored respirations, skin warm/dry/pink. Pt denies any needs at this time Patient states feeling better. 16:10 Reassessment: Patient and/or family updated on plan of care and expected duration. Pain tl4 level reassessed. Patient is alert, oriented x 3, equal unlabored respirations, skin warm/dry/pink. Patient states feeling better. Vital Signs: 14:25 BP 133 / 84; Pulse 119; Resp 17; Temp 99.1(O); Pulse Ox 100% on R/A; Weight 60.33 kg; nj1 Height 5 ft. 2 in. ; Pain 6/10; 14:34 BP 125 / 95; Pulse 113; Resp 18; Pulse Ox 100% on R/A; tl4 15:00 BP 124 / 69; Pulse 95; Resp 16; Pulse Ox 99% on R/A; tl4 16:09 BP 118 / 71; Pulse 86; Resp 16; Temp 98.2(O); Pulse Ox 100% on R/A; Pain 0/10; tl4 14:25 Body Mass Index 24.33 (60.33 kg, 157.48 cm) [facility] 14:25 Pain Scale: Adult nj1 16:09 Pain Scale: Adult tl4 ED Course: 14:20 Patient arrived in ED. im 14:20 Robina Lucio PA-C is PHCP. sb4 14:20 Andrew Zurita MD is Attending Physician. sb4 14:30 Triage completed. nj1 14:32 Chris Apple, RN is Primary Nurse. tl4 14:35 Arm band placed on. nj1 14:35 Patient has correct armband on for positive identification. Placed in gown. Bed in low tl4 position. Call light in reach. Side rails up X 1. Adult w/ patient. Provided Education on: ED process. Client placed on continuous cardiac and pulse oximetry monitoring. NIBP monitoring applied. Door closed. Noise minimized. Moved to private room. 14:35 No provider procedures requiring assistance completed. tl4 14:55 Flu Sent. tl4 14:55 SARS RAPID Sent. tl4 14:56 TSH Sent. tl4 14:56 Strep Sent. tl4 14:56 [place] Screen Profile Sent. tl4 14:56 CMP Sent. tl4 14:56 CBC with Diff Sent. tl4 14:56 Initial lab(s) drawn, by me, sent to lab. COVID swab sent to lab. Flu and/or RSV swab tl4 sent to lab. Strep swab sent to lab. Inserted saline lock: 22 gauge in right antecubital area, using aseptic technique. Blood collected. 15:24 Warm blanket given. tl4 15:53 Simone Contreras DO is Referral Physician. sb4 16:11 IV discontinued, intact, bleeding controlled, No redness/swelling at site. Pressure tl4 dressing applied. Administered Medications: 14:55 Drug: NS 0.9% IV 1000 ml IV at 1 bolus Per protocol; 1000 mL bolus {Note: via alaris tl4 pump.} Route: IV; Rate: 1 bolus; Site: right antecubital; Delivery: Primary tubing; 16:06 Follow up: Response: No adverse reaction; IV Status: Completed infusion; IV Intake: tl4 1000ml Medication: 14:34 VIS not applicable for this client. tl4 Intake: 16:06 IV: 1000ml; Total: 1000ml. tl4 Outcome: 15:53 Discharge ordered by . sb4 16:11 Discharged to home ambulatory, with friend, tl4 16:11 Condition: good 16:11 Discharge instructions given to patient, Instructed on discharge instructions, follow up and referral plans. medication usage, Demonstrated understanding of instructions, follow-up care, medications, Prescriptions given X 1, 16:15 Patient left the ED. tl4 Signatures: Robina Lucio PA-C PA-C sb4 Ashley Villar, RN RN nj1 Jessica Owens Toni RN RN tl4 Corrections: (The following items were deleted from the chart) 15:29 14:56 BP 125 / 95; Pulse 113bpm; Resp 18bpm; Pulse Ox 100% RA; tl4 tl4
[2023-12-01 16:31] VITALS: O2SAT 100
[2023-12-01 17:01] VITALS: BP 118/71; TEMP 98.2
== END 2023-12-01 16:15 | disposition home or self-care (01) ==
LOC: ER 14:16
DX: R22.9 Localized swelling, mass and lump, unspecified (principal)
CPT/HCPCS: 36415; 80053; 84443; 85025; 86308; 87070; 87081; 87811; 96360; 99284; J7030

== ENCOUNTER 2023-12-18 01:40 | Emergency (ER) | payer SELFPAY ==
--- NOTE | 2023-12-18 02:33 | EDPHYS ---
Physician Documentation [facility] Name: Hamilton Fritz Age: 23 yrs Sex: Female : 2000 Arrival Date: 12/18/2023 Time: 01:40 Bed 12 Private MD: ED Physician Surinder Powell HPI: 12/17 02:02 This 23 yrs old Other Female presents to ER via Ambulatory with complaints of arm sp4 swelling. 03:50 23-year-old female presents with complaint of the left arm redness distributed to left sp4 palmar side of the forearm with some hives. . 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 Flu vaccine is not up to date. - Infectious Disease History:: Denies. - Social history:: Smoking status: Patient denies any tobacco usage or history of. Patient uses alcohol, occasionally. Patient/guardian denies using street drugs. - Family history:: not pertinent. ROS: 03:50 Constitutional: Negative for fever, chills, and weight loss, Skin: Positive for left sp4 forearm hives 03:50 All other systems are negative, Exam: 03:50 Constitutional: This is a well developed, well nourished patient who is awake, alert, sp4 and in no acute distress. Head/Face: Normocephalic, atraumatic. Eyes: Pupils equal round and reactive to light, extra-ocular motions intact. Lids and lashes normal. Conjunctiva and sclera are not injected. Cornea within normal limits. Periorbital areas with no swelling, redness, or edema. ENT: Nares patent. No nasal discharge, no septal abnormalities noted. Tympanic membranes are normal and external auditory canals are clear. Oropharynx with no redness, swelling, or masses, exudates, or evidence of obstruction, uvula midline. Mucous membranes moist. Neck: Trachea midline, no thyromegaly or masses palpated, and no cervical lymphadenopathy. Supple, full range of motion without nuchal rigidity, or vertebral point tenderness. Chest/axilla: Normal chest wall appearance and motion. Nontender with no deformity. No lesions are appreciated. Cardiovascular: Regular rate and rhythm with a normal S1 and S2. No gallops, murmurs, or rubs. Normal PMI, no JVD. No pulse deficits. Respiratory: Lungs have equal breath sounds bilaterally, clear to auscultation and percussion. No rales, rhonchi or wheezes noted. No increased work of breathing, no retractions or nasal flaring. Abdomen/GI: Soft, with normal bowel sounds. No distension or tympany. No guarding or rebound. No evidence of tenderness throughout. Back: No spinal tenderness. No costovertebral tenderness. Skin: Warm, dry with normal turgor. Normal color with small area of hives to the left forearm on the palmar side. Findings consistent with localized allergic dermatitis. MS/ Extremity: Pulses equal, no cyanosis. Neurovascular intact. Full, normal range of motion. Neuro: Awake and alert, GCS 15, oriented to person, place, time, and situation. Cranial nerves II-XII grossly intact. Motor strength 5/5 in all extremities. Sensory grossly intact. Psych: Awake, alert, with orientation to person, place and time. Behavior, mood, and affect are within normal limits Vital Signs: 01:48 BP 151 / 75; Pulse 107; Resp 17 S; Temp 98.6(O); Pulse Ox 100% on R/A; Weight 63.96 kg lg3 (R); Height 5 ft. 2 in. (R); Pain 4/10; 02:49 BP 139 / 78; Pulse 94; Resp 17 S; Temp 98.5(O); Pulse Ox 100% on R/A; lg3 01:48 Body Mass Index 25.79 (63.96 kg, 157.48 cm) lg3 01:48 Pain Scale: Adult lg3 Evelyn Coma Score: 03:50 Eye Response: spontaneous(4). Motor Response: obeys commands(6). Verbal Response: sp4 oriented(5). Total: 15. MDM: 02:03 Patient medically screened. sp4 03:52 Differential Diagnosis altered mental status, sepsis, flu. Data reviewed: vital signs, sp4 nurses notes. Data reviewed: old medical records. ED course: Them consistent with a localized allergic dermatitis. Patient will be prescribed Benadryl and prednisone. Will advise follow-up with primary care physician and consider follow-up with pododermatologist . 12/17 02:03 Order name: Test, Urine sp4 Administered Medications: 02:49 Drug: predniSONE PO 60 mg PO once Route: PO; lg3 02:50 Follow up: Response: No adverse reaction lg3 02:49 Drug: diphenhydrAMINE PO 25 mg PO once Route: PO; lg3 02:50 Follow up: Response: No adverse reaction lg3 Disposition Summary: 12/18/23 02:32 Discharge Ordered Notes: Location: Home sp4 Problem: new sp4 Symptoms: have improved sp4 Condition: Stable sp4 Diagnosis - Acute allergic dermatitis, acute allergic hives sp4 Followup: sp4 - With: Froy Marcos DO - When: 7 - 10 days - Reason: Recheck today's complaints Discharge Instructions: - Discharge Summary Sheet sp4 - Hives, [id number] sp4 Forms: - Patient Portal Instructions sp4 Prescriptions: - diphenhydramine HCl 25 mg Oral tablet - take 1 tablet ORAL route every 8 hours for 5 days; 30 tablet; Refills: 0, sp4 Product Selection Permitted - Prednisone 20 mg Oral Tablet - take 2 tablets ORAL route once daily for 5 days; 10 tablet; Refills: 0, Product sp4 Selection Permitted Signatures: Dispatcher [employer] Lexus Morris, RN RN lg3 Surinder Powell MD MD sp4
--- NOTE | 2023-12-18 02:33 | ER ---
Nurse's Notes [facility] Name: Hamilton Fritz Age: 23 yrs Sex: Female : 2000 Arrival Date: 12/18/2023 Time: 01:40 Bed 12 Private MD: Diagnosis: Acute allergic dermatitis, acute allergic hives Presentation: 12/17 01:48 Chief complaint: Patient states: left forearm swelling since this morning. using lg3 Benadryl cream with no relief. Coronavirus screen: Client denies travel out of the [place] in the last 14 days. At this time, the client does not indicate any symptoms associated with coronavirus-19. Ebola Screen: No symptoms or risks identified at this time. Initial Sepsis Screen: Does the patient meet any 2 criteria? No. Patient's initial sepsis screen is negative. Does the patient have a suspected source of infection? No. Patient's initial sepsis screen is negative. Risk Assessment: Do you want to hurt yourself or someone else? Patient reports no desire to harm self or others. Onset of symptoms was December 17, 2023. 01:48 Method Of Arrival: Ambulatory lg3 01:48 Acuity: ANNA 4 lg3 Triage Assessment: 01:50 General: Appears in no apparent distress. comfortable, Behavior is calm, cooperative. lg3 Pain: Complains of pain in palmar aspect of left forearm Pain does not radiate. Pain currently is 4 out of 10 on a pain scale. EENT: No deficits noted. No signs and/or symptoms were reported regarding the EENT system. Neuro: No deficits noted. Amor Agitation-Sedation Scale (RASS): 0 - Alert and Calm Level of Consciousness is awake, alert, obeys commands, Oriented to person, place, time, situation. Cardiovascular: No deficits noted. Denies chest pain, shortness of breath, Capillary refill < 3 seconds Clubbing of nail beds is absent JVD is absent Patient's skin is warm and dry. Respiratory: No deficits noted. Airway is patent Respiratory effort is even, unlabored, Respiratory pattern is regular, symmetrical, Breath sounds are clear bilaterally. GI: No deficits noted. No signs and/or symptoms were reported involving the gastrointestinal system. : No deficits noted. No signs and/or symptoms were reported regarding the genitourinary system. Derm: Skin is intact, is healthy with good turgor, Skin is dry, Skin is normal, Skin temperature is warm reddening and swelling to left palmar forearm. Musculoskeletal: No deficits noted. Circulation, motion, and sensation intact. Range of motion: intact in all extremities, Swelling present in palmar aspect of left forearm. 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 Flu vaccine is not up to date. - Infectious Disease History:: Denies. - Social history:: Smoking status: Patient denies any tobacco usage or history of. Patient uses alcohol, occasionally. Patient/guardian denies using street drugs. - Family history:: not pertinent. Screenin:53 [facility] ED Fall Risk Assessment (Adult) History of falling in the last 3 months, lg3 including since admission No falls in past 3 months (0 pts) Confusion or Disorientation No (0 pts) Intoxicated or Sedated No (0 pts) Impaired Gait No (0 pts) Mobility Assist Device Used No (0 pt) Altered Elimination No (0 pt) Score/Fall Risk Level 0 - 2 = Low Risk Oriented to surroundings, Maintained a safe environment, Educated pt \T\ family on fall prevention, incl call for assistance when getting out of bed, Assessed \T\ reinforced patient's understanding of fall precautions. Abuse screen: Denies threats or abuse. Denies injuries from another. Nutritional screening: No deficits noted. Tuberculosis screening: No symptoms or risk factors identified. Assessment: 01:53 General: see triage assessment. lg3 02:49 Reassessment: Patient appears in no apparent distress at this time. No changes from lg3 previously documented assessment. Patient and/or family updated on plan of care and expected duration. Pain level reassessed. Patient is alert, oriented x 3, equal unlabored respirations, skin warm/dry/pink. Vital Signs: 01:48 BP 151 / 75; Pulse 107; Resp 17 S; Temp 98.6(O); Pulse Ox 100% on R/A; Weight 63.96 kg lg3 (R); Height 5 ft. 2 in. (R); Pain 4/10; 02:49 BP 139 / 78; Pulse 94; Resp 17 S; Temp 98.5(O); Pulse Ox 100% on R/A; lg3 01:48 Body Mass Index 25.79 (63.96 kg, 157.48 cm) lg3 01:48 Pain Scale: Adult lg3 Evelyn Coma Score: 03:50 Eye Response: spontaneous(4). Motor Response: obeys commands(6). Verbal Response: sp4 oriented(5). Total: 15. ED Course: 01:44 Patient arrived in ED. ra3 01:50 Triage completed. lg3 01:50 Arm band placed on right wrist. lg3 01:53 Patient has correct armband on for positive identification. lg3 02:02 Surinder Powell MD is Attending Physician. sp4 02:25 Lexus Arceo RN is Primary Nurse. lg3 02:25 Test, Urine Sent. lg3 02:32 Froy Marcos DO is Referral Physician. sp4 02:49 No provider procedures requiring assistance completed. Patient did not have IV access lg3 during this emergency room visit. Administered Medications: 02:49 Drug: predniSONE PO 60 mg PO once Route: PO; lg3 02:50 Follow up: Response: No adverse reaction lg3 02:49 Drug: diphenhydrAMINE PO 25 mg PO once Route: PO; lg3 02:50 Follow up: Response: No adverse reaction lg3 Medication: 02:49 VIS not applicable for this client. lg3 Outcome: 02:32 Discharge ordered by . sp4 02:49 Discharged to home ambulatory, lg3 02:49 Condition: stable 02:49 Discharge instructions given to patient, Instructed on discharge instructions, follow up and referral plans. medication usage, Demonstrated understanding of instructions, follow-up care, medications, Prescriptions given X 2, 02:50 Patient left the ED. lg3 Signatures: Lexus Arceo RN RN lg3 Surinder Powell MD MD sp4 Beronica Cai ra3 Corrections: (The following items were deleted from the chart) 01:56 01:48 BP 151 / 75; Pulse 107bpm; Resp 17bpm; Spontaneous; Pulse Ox 100% RA; 63.96 kg lg3 Reported; Height 5 ft. 2 in. Reported; BMI: 25.7; Pain 4/10, Adult; lg3
[2023-12-18] MEDS ORDERED: DIPHENHYDRAMINE 25 MG TAB/CAP ONE (02:42)
[2023-12-18] MEDS ORDERED: predniSONE 20 MG TAB ONE (02:42)
[2023-12-18 02:46] LABS: Specific Gravity 1.013 (1.005-1.030)
[2023-12-18 02:58] VITALS: BP 139/78; TEMP 98.5; O2SAT 100
== END 2023-12-18 02:50 | disposition home or self-care (01) ==
LOC: ER 01:40
DX: L23.9 Allergic contact dermatitis, unspecified cause (principal)
CPT/HCPCS: 81025; 99284; J7512